=== PATIENT | male | born 1945 | race Caucasian/White ===

== ENCOUNTER → 2017-03-25 | Outpatient (CLI) | payer MEDICARE, OTHER | LOC: OD 12:10 | PROVIDERS: ATTEND Physician Assistant | DX: B96.89 Other specified bacterial agents as the cause of diseases classified elsewhere (principal) | CPT/HCPCS: 87070; 87077; 87186; 87205 ==

== ENCOUNTER → 2018-12-20 | Outpatient (CLI) | payer MEDICARE, OTHER ==
--- NOTE | 2018-12-21 10:52 | RADIOLOGY REPORT (SQ) ---
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 Above dose of FDG was injected intravenously. 2-D seg mented attenuation correction images were obtained through the entire body. Noncontrast CT images we re obtained for attenuation correction and fusion with emission images. CT images were performed wit hout oral or intravenous contrast and are not sensitive for parenchymal lesions. A series of overlap ping emission PET images were obtained. Images reviewed and manipulated at independent work station by the radiologist. Images stored on PACS. LIMITATIONS: None. FINDINGS: HEAD AND NECK: No areas of abnormal metabolic activity in the soft tissues of the head and neck. CHEST: No areas of abnormal metabolic activity in the chest. Specifically, a 1 cm right lower lobe s piculated nodule is present on axial image 44 with SUV below baseline at 1.0. ABDOMEN AND PELVIS: No areas of abnormal metabolic activity in the abdomen or pelvis. Expected physi ologic activity is present in the genitourinary system and bowel. LOWER EXTREMITIES: No areas of abnormal metabolic activity in the soft tissues of the lower extremiti es. BONES: No abnormal metabolic activity in the visualized skeleton. ADDITIONAL CT FINDINGS: Old postsurgical changes left lung apex, multifocal bandlike lung parenchymal scarring. 1.6 cm cyst left lobe liver. Accessory spleen. Infrarenal abdominal aorta [address], small supraumbilical midline ventral hernia containing fat. OTHER: Liver background activity 2.1 SUV. Blood pool background activity 1.4 SUV IMPRESSION: No PET-CT evidence of metastatic disease 1 cm right lower lobe spiculated nodule non metabolic TECHNICAL DOCUMENTATION: JOB ID: [id number] [employer]- All Rights Reserved Reading location - IP/workstation name: [email or web address]
== END ==
LOC: RAD 16:24
PROVIDERS: ATTEND Physician Assistant Medical
DX: C49.0 Malignant neoplasm of connective and soft tissue of head, face and neck (principal); R91.1 Solitary pulmonary nodule
CPT/HCPCS: 78816; A9552